=== PATIENT | male | born 1950 | race African-American/Black ===

== ENCOUNTER 2022-02-11 06:26 | Emergency (ER) | payer MEDICARE, MEDICAID ==
[~2022-02-11] VITALS: Ht 193 cm; Wt 84.1 kg
[2022-02-11 07:02] LABS: BASOPHILS % (AUTO) 0.2 % (0.0-2.0); EOSINOPHILS % (AUTO) 1.3 % (1.0-6.0); HEMOGLOBIN 9.4 g/dL (13.5-17.5); LYMPHOCYTES # (AUTO) 0.3 K/uL (1.0-4.8); LYMPHOCYTES % (AUTO) 3.2 % (22.0-44.0); MEAN CORPUSCULAR HEMOGLOBIN 27.2 pg (26.0-34.0); MEAN CORPUSCULAR HGB CONC 32.5 G/dL (31.0-37.0); MEAN CORPUSCULAR VOLUME 84 fL (80-100); MONOCYTES % (AUTO) 11.6 % (2.0-9.0); NEUTROPHILS # (AUTO) 7.5 K/uL (1.8-7.7); NEUTROPHILS % (AUTO) 83.7 % (40.0-70.0); PLATELET COUNT (AUTO) 407 K/uL (150-450); RED BLOOD CELL COUNT(AUTO) 3.47 MIL/uL (4.50-5.90); RED CELL DISTRIBUTION WIDTH 19.5 % (11.5-14.5)
[2022-02-11 07:13] LABS: INR 1.2 (0.9-1.1); PROTHROMBIN TIME 12.4 SEC (9.4-11.6)
[2022-02-11 07:18] LABS: ALBUMIN 2.3 g/dL (3.4-5.0); BILIRUBIN,TOTAL 0.6 mg/dL (0.1-1.0); CALCIUM, TOTAL 10.8 mg/dL (8.8-10.5); CREATININE 16.4 mg/dL (0.60-1.30); TOTAL PROTEIN, SERUM 7.8 g/dL (6.4-8.2)
[2022-02-11 07:26] LABS: POTASSIUM 6.7 mmol/L (3.5-5.1)
[2022-02-11] MEDS ORDERED: DEXTROSE 50%-WATER 25 GM/50 ML SYRINGE IVP ONE (07:30)
[2022-02-11] MEDS ORDERED: INSULIN REGULAR, HUMAN 100 UNITS/ML IVP ONE (07:30)
[2022-02-11] MEDS ORDERED: CALCIUM GLUCONATE 1,000 MG in DEXTROSE 5%-WATER 50 ML IV ONE (07:30)
[2022-02-11 09:32] LABS: CALCIUM, TOTAL 10.3 mg/dL (8.8-10.5); CREATININE 16.37 mg/dL (0.60-1.30)
[2022-02-11 09:33] LABS: POTASSIUM 7.1 mmol/L (3.5-5.1)
[2022-02-11 11:10] VITALS: BP 127/67
[2022-02-11 11:21] LABS: GLUCOMETER DEV NAME(LOC) ERT.5; GLUCOSE,POINT OF CARE 157 MG/DL (70-110)
== END 2022-02-11 21:17 | disposition home or self-care (01) ==
LOC: EMS 06:28
DX: E87.5 Hyperkalemia (principal); J81.1 Chronic pulmonary edema; D64.9 Anemia, unspecified; I25.10 Atherosclerotic heart disease of native coronary artery without angina pectoris; I12.0 Hypertensive chronic kidney disease with stage 5 chronic kidney disease or end stage renal disease; N18.6 End stage renal disease; Z99.2 Dependence on renal dialysis; Z91.15 Patient's noncompliance with renal dialysis; Z98.890 Other specified postprocedural states
CPT/HCPCS: 99285; 96365; 71045; 96375; 80053; 82962; 83880; 84484; 85025; 85610; 85730; 36415; 93005; 80048; J1815; J7060; J0610

== ENCOUNTER 2022-03-28 13:33 | Inpatient (IN) | payer MEDICARE, MEDICAID ==
[~2022-03-28] VITALS: Ht 180.3 cm; Wt 88.3 kg
[2022-03-28] MEDS ORDERED: ATROPINE SULFATE 0.1 MG/ML 10 ML SYRINGE IVP ONE ×2 (13:43→14:00)
[2022-03-28] MEDS ORDERED: CALCIUM GLUCONATE 0.465 MEQ/ML 10 ML VIAL ONE (13:43)
[2022-03-28] MEDS ORDERED: CALCIUM GLUCONATE 100 MG/ML 10 ML IVP ONE (14:00)
[2022-03-28] MEDS ORDERED: ATROPINE SULFATE 1 MG/ML VIAL IVP ONE (14:00)
[2022-03-28] MEDS ORDERED: DOPamine 400MG/D5W[STANDARD] 250 ML IV ONE (14:01)
[2022-03-28 14:39] LABS: BASOPHILS % (AUTO) 0.2 % (0.0-2.0); EOSINOPHILS % (AUTO) 1.3 % (1.0-6.0); HEMATOCRIT 24.5 % (41-53); HEMOGLOBIN 7.9 g/dL (13.5-17.5); LYMPHOCYTES # (AUTO) 0.7 K/uL (1.0-4.8); LYMPHOCYTES % (AUTO) 4.7 % (22.0-44.0); MEAN CORPUSCULAR HEMOGLOBIN 28.6 pg (26.0-34.0); MEAN CORPUSCULAR HGB CONC 32.4 G/dL (31.0-37.0); MEAN CORPUSCULAR VOLUME 89 fL (80-100); MONOCYTES # (AUTO) 0.9 K/uL (0.1-1.0); MONOCYTES % (AUTO) 5.7 % (2.0-9.0); NEUTROPHILS # (AUTO) 13.4 K/uL (1.8-7.7); PLATELET COUNT (AUTO) 390 K/uL (150-450); RED BLOOD CELL COUNT(AUTO) 2.77 MIL/uL (4.50-5.90); RED CELL DISTRIBUTION WIDTH 20.1 % (11.5-14.5)
[2022-03-28 14:44] LABS: CALCIUM, TOTAL 9.5 mg/dL (8.8-10.5); CREATININE 9.99 mg/dL (0.60-1.30); POTASSIUM 5.7 mmol/L (3.5-5.1)
[2022-03-28 14:50] LABS: ALBUMIN 2.1 g/dL (3.4-5.0); BILIRUBIN,TOTAL 0.5 mg/dL (0.1-1.0); TOTAL PROTEIN, SERUM 6.8 g/dL (6.4-8.2)
[2022-03-28 14:51] LABS: NEUTROPHILS % (AUTO) 88.1 % (40.0-70.0)
[2022-03-28 15:02] LABS: ABG BASE EXCESS 0.8 mmol/L (-2.0-3.0); ABG CARBOXYHEMOGLOBIN 0.1 % (0.0-1.5); ABG HCO3 25.2 mmol/L (22.0-26.0); ABG METHEMOGLOBIN 0.2 % (0.0-1.5); ABG OXYGEN CONTENT 12.5 mL/dL (15.0-23.0); ABG OXYGEN SATURATION 96.5 % (95.0-98.0); ABG OXYHEMOGLOBIN 96.2 % (94.0-100.0); ABG PCO2 38 mmHg (35-45); ABG PH 7.439 (7.35-7.450); ABG TOTAL HEMOGLOBIN 9.1 G/dL (12.0-18.0); PO2, ARTERIAL BG 87.9 mmHg (79.0-87.0); SOURCE, BLOOD GAS ARTERIAL; TEMPERATURE, FAHRENHEIT, BG 97.9 FAHREN (96.0-98.6)
[2022-03-28 15:06] LABS: SITE, BLOOD GAS RT RADIAL
[2022-03-28 15:07] LABS: ABG A-A DIFF O2 588.6 mmHg (10-20.0); O2 DEVICE,BLOOD GAS NON REBREATHER (ROOM AIR)
[2022-03-28] MEDS ORDERED: INSU100V42 SQ (16:23)
[2022-03-28] MEDS ORDERED: ACET-2247 PO (16:29)
[2022-03-28] MEDS ORDERED: ASPI-1 PO (16:29)
[2022-03-28] MEDS ORDERED: SEVE800T17 PO (16:29)
[2022-03-28] MEDS ORDERED: NIFE-141 PO (16:29)
[2022-03-28] MEDS ORDERED: ROPI0.2535 PO (16:29)
[2022-03-28] MEDS ORDERED: CINA30 PO (16:29)
[2022-03-28] MEDS ORDERED: CLOP75TA60 PO (16:29)
[2022-03-28] MEDS ORDERED: ATOR40TA28 PO (16:29)
[2022-03-28] MEDS ORDERED: FOLI0.8T53 PO (16:29)
[2022-03-28] MEDS ORDERED: ISOS30TA92 PO (16:29)
[2022-03-28] MEDS ORDERED: VANCOMYCIN 1GM/WATER(PEG/NADA) 200 ML IV ONE (16:30)
[2022-03-28] MEDS: DOPamine 400MG/D5W[STANDARD] 250 ML IV PRN ×2 (16:40→21:23)
[2022-03-28] MEDS: PIPERACILLIN/TAZO 3.375 GM/D5W 50 ML IV ONE ×2 (16:42→18:00)
[2022-03-28] MEDS ORDERED: SODIUM ZIRCONIUM CYCLOSILICATE 5 GM POWDER PACKET PO ONE (16:45)
[2022-03-28] MEDS ORDERED: NOREPINEPHRINE 8 MG/D5%-WATER 250 ML IV PRN (17:00)
[2022-03-28] MEDS ORDERED: ZOLPIDEM TARTRATE 5 MG TABLET PO PRN (17:00)
[2022-03-28] MEDS ORDERED: PIPERACILLIN SODIUM/TAZOBACTAM 0.75 GM in DEXTROSE 5%-WATER 50 ML IV PRN (17:15)
[2022-03-28 20:25] LABS: COVID AG,FIA SOURCE NASAL SWAB
[2022-03-28 20:50] VITALS: BP 118/59
[2022-03-28] MEDS: DOCUSATE SODIUM 100 MG CAPSULE PO SCH (21:22)
[2022-03-28] MEDS: ETHYL ALCOHOL 62% ANTISEPTIC NASAL SANITIZER 0.6 ML AMPUL NASAL SCH (21:22)
[2022-03-28 21:24] LABS: CALCIUM, TOTAL 9.1 mg/dL (8.8-10.5); CREATININE 10.03 mg/dL (0.60-1.30); POTASSIUM 5.5 mmol/L (3.5-5.1)
[2022-03-28] MEDS ORDERED: SODIUM CHLORIDE 0.9% 250 ML IV ONE (21:35)
[2022-03-28 23:31] LABS: GLUCOSE,POINT OF CARE 192 MG/DL (70-110)
[2022-03-29] VITALS (13 sets, daily range): BP systolic 93–133; BP diastolic 36–69
[2022-03-29] MEDS: HEPARIN SODIUM,PORCINE 5,000 UNITS/ML VIAL SQ SCH ×3 (00:46→18:00)
[2022-03-29] MEDS: PIPERACILLIN SODIUM/TAZOBACTAM 2.25 GM in DEXTROSE 5%-WATER 50 ML IV SCH ×3 (00:47→18:13)
[2022-03-29] MEDS ORDERED: DOPamine 400MG/D5W[STANDARD] 250 ML IV ONE (05:04)
[2022-03-29] MEDS ORDERED: NOREPINEPHRINE 8 MG/D5%-WATER 250 ML IV PRN (05:15)
[2022-03-29] MEDS: DOPamine 400MG/D5W[STANDARD] 250 ML IV PRN ×3 (05:19→16:46)
[2022-03-29 05:36] LABS: BASOPHILS % (AUTO) 0.2 % (0.0-2.0); EOSINOPHILS % (AUTO) 1.1 % (1.0-6.0); HEMATOCRIT 25.7 % (41-53); HEMOGLOBIN 8.5 g/dL (13.5-17.5); LYMPHOCYTES # (AUTO) 0.5 K/uL (1.0-4.8); MEAN CORPUSCULAR HEMOGLOBIN 29.1 pg (26.0-34.0); MEAN CORPUSCULAR VOLUME 88 fL (80-100); MONOCYTES # (AUTO) 0.6 K/uL (0.1-1.0); MONOCYTES % (AUTO) 4.9 % (2.0-9.0); NEUTROPHILS # (AUTO) 10.8 K/uL (1.8-7.7); PLATELET COUNT (AUTO) 392 K/uL (150-450); RED BLOOD CELL COUNT(AUTO) 2.92 MIL/uL (4.50-5.90); RED CELL DISTRIBUTION WIDTH 19.7 % (11.5-14.5)
[2022-03-29 05:49] LABS: CALCIUM, TOTAL 9.1 mg/dL (8.8-10.5); CREATININE 10.4 mg/dL (0.60-1.30); POTASSIUM 5.5 mmol/L (3.5-5.1)
[2022-03-29 06:08] LABS: NEUTROPHILS % (AUTO) 89.8 % (40.0-70.0)
[2022-03-29 06:31] LABS: GLUCOSE,POINT OF CARE 275 MG/DL (70-110)
[2022-03-29] MEDS: EPOETIN ALFA 10,000 UNITS/ML VIAL SQ SCH (08:57)
[2022-03-29] MEDS: ETHYL ALCOHOL 62% ANTISEPTIC NASAL SANITIZER 0.6 ML AMPUL NASAL SCH ×2 (08:57→20:26)
[2022-03-29] MEDS: CINACALCET HCL 30 MG TABLET PO SCH (08:57)
[2022-03-29] MEDS: SEVELAMER CARBONATE 800 MG TABLET PO SCH (08:57)
[2022-03-29] MEDS: DOCUSATE SODIUM 100 MG CAPSULE PO SCH ×2 (08:58→20:26)
[2022-03-29] MEDS: PANTOPRAZOLE SODIUM 40 MG DR TABLET PO SCH (08:58)
[2022-03-29] MEDS: ASPIRIN 325 MG TABLET PO SCH (08:58)
[2022-03-29] MEDS ORDERED: ATORVASTATIN CALCIUM 40 MG TABLET PO SCH (09:00)
[2022-03-29] MEDS ORDERED: CLOPIDOGREL BISULFATE 75 MG TABLET PO SCH (09:00)
[2022-03-29] MEDS ORDERED: ISOSORBIDE MONONITRATE 30 MG ER TABLET PO SCH (09:00)
[2022-03-29] MEDS ORDERED: SODIUM CHLORIDE 0.9% 2,000 ML ONE (09:36)
[2022-03-29] MEDS ORDERED: DEXTROSE 50%-WATER 25 GM/50 ML SYRINGE IVP PRN (10:30)
[2022-03-29] MEDS ORDERED: REMDESIVIR 200 MG in SODIUM CHLORIDE 0.9% 250 ML IV ONE (11:00)
[2022-03-29 11:41] LABS: INR 1.2 (0.9-1.1); PROTHROMBIN TIME 12.4 SEC (9.4-11.6)
[2022-03-29] MEDS: DEXAMETHASONE SOD PHOS 4 MG/ML VIAL IVP SCH (12:52)
[2022-03-29] MEDS: INSULIN LISPRO 100 UNITS/ML SQ PRN ×2 (13:15→18:14)
[2022-03-29] MEDS ORDERED: NALOXONE HCL 0.4 MG/ML VIAL ONE (14:21)
[2022-03-29] MEDS ORDERED: FLUMAZENIL 0.1 MG/ML 5 ML VIAL IVP ONE (14:21)
[2022-03-29] MEDS ORDERED: FentaNYL CITRATE PF 100 MCG/2 ML VIAL ONE (14:21)
[2022-03-29] MEDS ORDERED: MIDAZOLAM HCL 2 MG/2 ML VIAL ONE (14:21)
[2022-03-29 16:07] LABS: C-REACTIVE PROTEIN QUANT 19.46 mg/dL (0.00-0.30)
[2022-03-29] MEDS ORDERED: VANCOMYCIN 1GM/WATER(PEG/NADA) 200 ML IV PRN (16:15)
[2022-03-29] MEDS ORDERED: FentaNYL CITRATE PF 100 MCG/2 ML VIAL IVP ONE (16:30)
[2022-03-29 17:43] LABS: SPECIMENTYPE,BODY FLUID PLEURAL
[2022-03-29 19:33] LABS: APPEARANCE,UNSPUN,BODY FLUID TURBID (CLEAR)
[2022-03-29 19:38] LABS: TOTAL VOLUME,BODY FLUID 10 mL; WBC, BODY FLUID 356000 /cu. mm.
[2022-03-29 19:39] LABS: BASOPHILS,BODY FLUID 0 %; EOSINOPHILS,BF (ANAL) 0 %; LYMPHOCYTES,BODY FLUID 0 %; MONOCYTES,BODY FLUID 0 %; NEUTROPHILS,BODY FLUID 100 %
[2022-03-29 19:43] LABS: APPEARANCE,SPUN,BODY FLUID HAZY (CLEAR)
[2022-03-29 20:21] LABS: GLUCOSE,POINT OF CARE 159 MG/DL (70-110)
[2022-03-29 20:21] LABS: GLUCOSE,POINT OF CARE 196 MG/DL (70-110)
[2022-03-29 22:51] LABS: GLUCOSE,POINT OF CARE 141 MG/DL (70-110)
[2022-03-30] VITALS: BP 128/64
[2022-03-30] MEDS: HEPARIN SODIUM,PORCINE 5,000 UNITS/ML VIAL SQ SCH ×3 (00:13→16:05)
[2022-03-30] MEDS: PIPERACILLIN SODIUM/TAZOBACTAM 2.25 GM in DEXTROSE 5%-WATER 50 ML IV SCH ×3 (00:59→18:22)
[2022-03-30] MEDS: MAGNESIUM HYDROXIDE SUSPENSION 30 ML UDCUP PO PRN (03:41)
[2022-03-30 04:00] VITALS: BP 120/66
[2022-03-30 05:38] LABS: EOSINOPHILS % (AUTO) 0 % (1.0-6.0); HEMATOCRIT 26.2 % (41-53); HEMOGLOBIN 8.6 g/dL (13.5-17.5); LYMPHOCYTES # (AUTO) 0.4 K/uL (1.0-4.8); MEAN CORPUSCULAR HEMOGLOBIN 28.8 pg (26.0-34.0); MEAN CORPUSCULAR HGB CONC 32.9 G/dL (31.0-37.0); MEAN CORPUSCULAR VOLUME 88 fL (80-100); MONOCYTES # (AUTO) 0.3 K/uL (0.1-1.0); MONOCYTES % (AUTO) 2.3 % (2.0-9.0); PLATELET COUNT (AUTO) 403 K/uL (150-450); RED BLOOD CELL COUNT(AUTO) 2.98 MIL/uL (4.50-5.90); RED CELL DISTRIBUTION WIDTH 19.4 % (11.5-14.5)
[2022-03-30 05:52] LABS: ALBUMIN 1.9 g/dL (3.4-5.0); BILIRUBIN,DIRECT 0.2 mg/dL (0.00-0.20); BILIRUBIN,TOTAL 0.5 mg/dL (0.1-1.0); TOTAL PROTEIN, SERUM 6.5 g/dL (6.4-8.2)
[2022-03-30 05:53] LABS: ALBUMIN 1.9 g/dL (3.4-5.0); BILIRUBIN,TOTAL 0.4 mg/dL (0.1-1.0); C-REACTIVE PROTEIN QUANT 18.03 mg/dL (0.00-0.30); CALCIUM, TOTAL 8.6 mg/dL (8.8-10.5); CREATININE 8.19 mg/dL (0.60-1.30); TOTAL PROTEIN, SERUM 6.5 g/dL (6.4-8.2); VANCOMYCIN,RANDOM 7.8 mcg/mL (25.0-50.0)
[2022-03-30 06:09] LABS: NEUTROPHILS % (AUTO) 94.7 % (40.0-70.0)
[2022-03-30] MEDS: INSULIN LISPRO 100 UNITS/ML SQ PRN ×2 (06:53→21:18)
[2022-03-30 08:00] VITALS: BP 137/73
[2022-03-30] MEDS: DEXAMETHASONE SOD PHOS 4 MG/ML VIAL IVP SCH (08:35)
[2022-03-30] MEDS: DOCUSATE SODIUM 100 MG CAPSULE PO SCH ×2 (08:36→20:39)
[2022-03-30] MEDS: ETHYL ALCOHOL 62% ANTISEPTIC NASAL SANITIZER 0.6 ML AMPUL NASAL SCH ×2 (08:36→20:39)
[2022-03-30] MEDS: PANTOPRAZOLE SODIUM 40 MG DR TABLET PO SCH (08:36)
[2022-03-30] MEDS: ASPIRIN 325 MG TABLET PO SCH (08:36)
[2022-03-30] MEDS ORDERED: VANCOMYCIN HCL 1 GM/D5% WATER 200 ML IV ONE (09:00)
[2022-03-30] MEDS: ONDANSETRON HCL 4 MG/2 ML VIAL IVP PRN (09:59)
[2022-03-30 10:21] LABS: GLUCOSE,POINT OF CARE 152 MG/DL (70-110)
[2022-03-30 10:21] LABS: GLUCOSE,POINT OF CARE 128 MG/DL (70-110)
[2022-03-30] MEDS ORDERED: APIX5TAB PO (11:59)
[2022-03-30] MEDS ORDERED: METO25 PO (11:59)
[2022-03-30] MEDS ORDERED: AMIO200 PO (11:59)
[2022-03-30 12:00] VITALS: BP 124/59
[2022-03-30] MEDS ORDERED: VANCOMYCIN 1GM/WATER(PEG/NADA) 200 ML IV ONE (12:00)
[2022-03-30] MEDS: REMDESIVIR 100 MG in SODIUM CHLORIDE 0.9% 250 ML IV SCH (12:07)
[2022-03-30] MEDS: SEVELAMER CARBONATE 800 MG TABLET PO SCH (12:07)
[2022-03-30] MEDS: CINACALCET HCL 30 MG TABLET PO SCH (12:07)
[2022-03-30] MEDS: BISACODYL 10 MG RECTAL RECTAL SUPPOSITORY PR PRN (12:57)
[2022-03-30 16:00] VITALS: BP 91/22
[2022-03-30] MEDS: ACETAMINOPHEN 325 MG TABLET PO PRN (16:56)
[2022-03-30 19:31] LABS: GLUCOSE,POINT OF CARE 161 MG/DL (70-110)
[2022-03-30 20:00] VITALS: BP 128/63
[2022-03-31] VITALS (7 sets, daily range): BP systolic 116–164; BP diastolic 40–93
[2022-03-31] MEDS: HEPARIN SODIUM,PORCINE 5,000 UNITS/ML VIAL SQ SCH ×3 (00:03→16:48)
[2022-03-31] MEDS: PIPERACILLIN SODIUM/TAZOBACTAM 2.25 GM in DEXTROSE 5%-WATER 50 ML IV SCH ×3 (01:04→16:48)
[2022-03-31] MEDS: ACETAMINOPHEN 325 MG TABLET PO PRN ×3 (01:37→17:37)
[2022-03-31 05:31] LABS: GLUCOSE,POINT OF CARE 188 MG/DL (70-110)
[2022-03-31 05:39] LABS: EOSINOPHILS % (AUTO) 0 % (1.0-6.0); HEMATOCRIT 25.4 % (41-53); HEMOGLOBIN 8.6 g/dL (13.5-17.5); LYMPHOCYTES # (AUTO) 0.5 K/uL (1.0-4.8); LYMPHOCYTES % (AUTO) 5.3 % (22.0-44.0); MEAN CORPUSCULAR HEMOGLOBIN 29.4 pg (26.0-34.0); MEAN CORPUSCULAR HGB CONC 33.7 G/dL (31.0-37.0); MEAN CORPUSCULAR VOLUME 87 fL (80-100); MONOCYTES # (AUTO) 0.5 K/uL (0.1-1.0); MONOCYTES % (AUTO) 4.6 % (2.0-9.0); NEUTROPHILS # (AUTO) 8.9 K/uL (1.8-7.7); PLATELET COUNT (AUTO) 355 K/uL (150-450); RED BLOOD CELL COUNT(AUTO) 2.91 MIL/uL (4.50-5.90); RED CELL DISTRIBUTION WIDTH 19.6 % (11.5-14.5)
[2022-03-31 05:44] LABS: NEUTROPHILS % (AUTO) 90.1 % (40.0-70.0)
[2022-03-31 06:00] LABS: BILIRUBIN,TOTAL 0.4 mg/dL (0.1-1.0); C-REACTIVE PROTEIN QUANT 9.7 mg/dL (0.00-0.30); CALCIUM, TOTAL 8.3 mg/dL (8.8-10.5); CREATININE 9.18 mg/dL (0.60-1.30); POTASSIUM 5.3 mmol/L (3.5-5.1); TOTAL PROTEIN, SERUM 6.3 g/dL (6.4-8.2)
[2022-03-31] MEDS: CINACALCET HCL 30 MG TABLET PO SCH (08:36)
[2022-03-31] MEDS: SEVELAMER CARBONATE 800 MG TABLET PO SCH (08:36)
[2022-03-31] MEDS: PANTOPRAZOLE SODIUM 40 MG DR TABLET PO SCH (08:37)
[2022-03-31] MEDS: ASPIRIN 325 MG TABLET PO SCH (08:37)
[2022-03-31] MEDS: DOCUSATE SODIUM 100 MG CAPSULE PO SCH ×2 (08:37→20:52)
[2022-03-31] MEDS: ETHYL ALCOHOL 62% ANTISEPTIC NASAL SANITIZER 0.6 ML AMPUL NASAL SCH ×2 (08:37→20:52)
[2022-03-31] MEDS: DEXAMETHASONE SOD PHOS 4 MG/ML VIAL IVP SCH (08:41)
[2022-03-31] MEDS: -POST HEMODIALYSIS NOTE- MISC SCH (08:42)
[2022-03-31 10:07] LABS: GLUCOSE,POINT OF CARE 142 MG/DL (70-110)
[2022-03-31] MEDS: REMDESIVIR 100 MG in SODIUM CHLORIDE 0.9% 250 ML IV SCH (12:31)
[2022-03-31] MEDS: INSULIN LISPRO 100 UNITS/ML SQ PRN (12:38)
[2022-03-31 12:56] LABS: GLUCOSE,POINT OF CARE 162 MG/DL (70-110)
[2022-03-31 21:51] LABS: GLUCOSE,POINT OF CARE 122 MG/DL (70-110)
[2022-04-01] VITALS (14 sets, daily range): BP systolic 120–159; BP diastolic 61–83
[2022-04-01] MEDS ORDERED: SODIUM CHLORIDE 0.9% 250 ML IV ONE (00:03)
[2022-04-01] MEDS: HEPARIN SODIUM,PORCINE 5,000 UNITS/ML VIAL SQ SCH ×4 (00:24→23:58)
[2022-04-01] MEDS: PIPERACILLIN SODIUM/TAZOBACTAM 2.25 GM in DEXTROSE 5%-WATER 50 ML IV SCH ×3 (00:24→17:53)
[2022-04-01 07:03] LABS: BASOPHILS % (AUTO) 0.1 % (0.0-2.0); EOSINOPHILS % (AUTO) 0.6 % (1.0-6.0); HEMATOCRIT 27.8 % (41-53); HEMOGLOBIN 9.3 g/dL (13.5-17.5); LYMPHOCYTES # (AUTO) 0.7 K/uL (1.0-4.8); LYMPHOCYTES % (AUTO) 8.8 % (22.0-44.0); MEAN CORPUSCULAR HEMOGLOBIN 29.1 pg (26.0-34.0); MEAN CORPUSCULAR HGB CONC 33.5 G/dL (31.0-37.0); MEAN CORPUSCULAR VOLUME 87 fL (80-100); MONOCYTES # (AUTO) 0.5 K/uL (0.1-1.0); MONOCYTES % (AUTO) 6.1 % (2.0-9.0); NEUTROPHILS % (AUTO) 84.4 % (40.0-70.0); PLATELET COUNT (AUTO) 392 K/uL (150-450); RED BLOOD CELL COUNT(AUTO) 3.19 MIL/uL (4.50-5.90); RED CELL DISTRIBUTION WIDTH 20.4 % (11.5-14.5)
[2022-04-01 07:25] LABS: ALBUMIN 2.1 g/dL (3.4-5.0); BILIRUBIN,TOTAL 0.3 mg/dL (0.1-1.0); CALCIUM, TOTAL 8.6 mg/dL (8.8-10.5); CREATININE 10.13 mg/dL (0.60-1.30); POTASSIUM 5.5 mmol/L (3.5-5.1); TOTAL PROTEIN, SERUM 6.6 g/dL (6.4-8.2); VANCOMYCIN,RANDOM 16.7 mcg/mL (25.0-50.0)
[2022-04-01] MEDS ORDERED: SODIUM CHLORIDE 0.9% 2,000 ML ONE (08:04)
[2022-04-01] MEDS: -POST HEMODIALYSIS NOTE- MISC SCH (09:00)
[2022-04-01] MEDS: MAGNESIUM HYDROXIDE SUSPENSION 30 ML UDCUP PO PRN (09:58)
[2022-04-01] MEDS: EPOETIN ALFA 10,000 UNITS/ML VIAL SQ SCH (10:00)
[2022-04-01] MEDS: HYDROCODONE/ACETAMINOPHEN 5-325 MG TABLET PO PRN (10:01)
[2022-04-01] MEDS: DOCUSATE SODIUM 100 MG CAPSULE PO SCH ×2 (10:02→20:42)
[2022-04-01] MEDS: ATORVASTATIN CALCIUM 40 MG TABLET PO SCH (10:03)
[2022-04-01] MEDS: CINACALCET HCL 30 MG TABLET PO SCH (10:03)
[2022-04-01] MEDS: PANTOPRAZOLE SODIUM 40 MG DR TABLET PO SCH (10:04)
[2022-04-01] MEDS: ASPIRIN 325 MG TABLET PO SCH (10:04)
[2022-04-01] MEDS: SEVELAMER CARBONATE 800 MG TABLET PO SCH (10:04)
[2022-04-01] MEDS: DEXAMETHASONE SOD PHOS 4 MG/ML VIAL IVP SCH (10:05)
[2022-04-01] MEDS: ETHYL ALCOHOL 62% ANTISEPTIC NASAL SANITIZER 0.6 ML AMPUL NASAL SCH ×2 (10:05→20:42)
[2022-04-01 12:06] LABS: GLUCOMETER DEV NAME(LOC) 5N.1C; GLUCOSE,POINT OF CARE 134 MG/DL (70-110)
[2022-04-01] MEDS: REMDESIVIR 100 MG in SODIUM CHLORIDE 0.9% 250 ML IV SCH (13:02)
[2022-04-01 13:36] LABS: GLUCOMETER DEV NAME(LOC) 5S.2B; GLUCOSE,POINT OF CARE 81 MG/DL (70-110)
[2022-04-01] MEDS ORDERED: VANCOMYCIN 1GM/WATER(PEG/NADA) 200 ML IV ONE (17:00)
[2022-04-02] MEDS: PIPERACILLIN SODIUM/TAZOBACTAM 2.25 GM in DEXTROSE 5%-WATER 50 ML IV SCH ×3 (00:49→17:16)
[2022-04-02 05:49] VITALS: BP 143/66
[2022-04-02] MEDS: INSULIN LISPRO 100 UNITS/ML SQ PRN ×3 (06:12→20:19)
[2022-04-02 07:19] LABS: ALBUMIN 2.2 g/dL (3.4-5.0); BILIRUBIN,TOTAL 0.4 mg/dL (0.1-1.0); CALCIUM, TOTAL 8.3 mg/dL (8.8-10.5); CREATININE 7.21 mg/dL (0.60-1.30); POTASSIUM 5.2 mmol/L (3.5-5.1); TOTAL PROTEIN, SERUM 6.6 g/dL (6.4-8.2)
[2022-04-02 08:23] VITALS: BP 146/68
[2022-04-02] MEDS: -POST HEMODIALYSIS NOTE- MISC SCH (09:00)
[2022-04-02] MEDS ORDERED: SODIUM CHLORIDE 0.9% 250 ML IV ONE (09:40)
[2022-04-02] MEDS: PANTOPRAZOLE SODIUM 40 MG DR TABLET PO SCH (09:44)
[2022-04-02] MEDS: CINACALCET HCL 30 MG TABLET PO SCH (09:44)
[2022-04-02] MEDS: SEVELAMER CARBONATE 800 MG TABLET PO SCH (09:44)
[2022-04-02] MEDS: ASPIRIN 325 MG TABLET PO SCH (09:44)
[2022-04-02] MEDS: ATORVASTATIN CALCIUM 40 MG TABLET PO SCH (09:44)
[2022-04-02] MEDS: DOCUSATE SODIUM 100 MG CAPSULE PO SCH ×2 (09:45→20:12)
[2022-04-02] MEDS: DEXAMETHASONE SOD PHOS 4 MG/ML VIAL IVP SCH (09:46)
[2022-04-02] MEDS: HEPARIN SODIUM,PORCINE 5,000 UNITS/ML VIAL SQ SCH ×3 (09:46→23:41)
[2022-04-02] MEDS: ETHYL ALCOHOL 62% ANTISEPTIC NASAL SANITIZER 0.6 ML AMPUL NASAL SCH ×2 (09:54→20:12)
[2022-04-02 12:00] VITALS: BP 142/69
[2022-04-02] MEDS: REMDESIVIR 100 MG in SODIUM CHLORIDE 0.9% 250 ML IV SCH (14:04)
[2022-04-02 16:00] VITALS: BP 146/71
[2022-04-02 20:02] VITALS: BP 132/65
[2022-04-02] MEDS: ACETAMINOPHEN 325 MG TABLET PO PRN (20:13)
[2022-04-03] VITALS (14 sets, daily range): BP systolic 114–149; BP diastolic 57–90
[2022-04-03] MEDS: PIPERACILLIN SODIUM/TAZOBACTAM 2.25 GM in DEXTROSE 5%-WATER 50 ML IV SCH ×2 (01:45→09:33)
[2022-04-03 02:12] LABS: GLUCOMETER DEV NAME(LOC) 5S.1B; GLUCOSE,POINT OF CARE 136 MG/DL (70-110)
[2022-04-03 02:12] LABS: GLUCOMETER DEV NAME(LOC) 5S.1B; GLUCOSE,POINT OF CARE 204 MG/DL (70-110)
[2022-04-03 03:31] LABS: GLUCOMETER DEV NAME(LOC) 5N.1C; GLUCOSE,POINT OF CARE 112 MG/DL (70-110)
[2022-04-03 03:31] LABS: GLUCOMETER DEV NAME(LOC) 5N.1C; GLUCOSE,POINT OF CARE 157 MG/DL (70-110)
[2022-04-03 03:31] LABS: GLUCOMETER DEV NAME(LOC) 5N.1C; GLUCOSE,POINT OF CARE 95 MG/DL (70-110)
[2022-04-03 03:31] LABS: GLUCOMETER DEV NAME(LOC) 5N.1C; GLUCOSE,POINT OF CARE 157 MG/DL (70-110)
[2022-04-03] MEDS: INSULIN LISPRO 100 UNITS/ML SQ PRN ×3 (06:11→18:46)
[2022-04-03] MEDS: -POST HEMODIALYSIS NOTE- MISC SCH (09:00)
[2022-04-03 09:21] LABS: GLUCOMETER DEV NAME(LOC) 5S.2B; GLUCOSE,POINT OF CARE 186 MG/DL (70-110)
[2022-04-03] MEDS: CINACALCET HCL 30 MG TABLET PO SCH (09:33)
[2022-04-03] MEDS: ASPIRIN 325 MG TABLET PO SCH (09:33)
[2022-04-03] MEDS: SEVELAMER CARBONATE 800 MG TABLET PO SCH (09:34)
[2022-04-03] MEDS: ATORVASTATIN CALCIUM 40 MG TABLET PO SCH (09:34)
[2022-04-03] MEDS: DEXAMETHASONE SOD PHOS 4 MG/ML VIAL IVP SCH (09:34)
[2022-04-03] MEDS: HEPARIN SODIUM,PORCINE 5,000 UNITS/ML VIAL SQ SCH ×2 (09:34→17:17)
[2022-04-03] MEDS: PANTOPRAZOLE SODIUM 40 MG DR TABLET PO SCH (09:34)
[2022-04-03] MEDS: DOCUSATE SODIUM 100 MG CAPSULE PO SCH ×2 (09:35→20:01)
[2022-04-03] MEDS: EPOETIN ALFA 10,000 UNITS/ML VIAL SQ SCH (09:37)
[2022-04-03] MEDS: ETHYL ALCOHOL 62% ANTISEPTIC NASAL SANITIZER 0.6 ML AMPUL NASAL SCH ×2 (09:38→20:01)
[2022-04-03] MEDS ORDERED: ALTEPLASE 2 MG VIAL MISC ONE (12:15)
[2022-04-03 14:13] LABS: BASOPHILS % (AUTO) 0.1 % (0.0-2.0); EOSINOPHILS % (AUTO) 0.2 % (1.0-6.0); HEMATOCRIT 29.8 % (41-53); HEMOGLOBIN 9.7 g/dL (13.5-17.5); LYMPHOCYTES # (AUTO) 0.6 K/uL (1.0-4.8); LYMPHOCYTES % (AUTO) 4.6 % (22.0-44.0); MEAN CORPUSCULAR HEMOGLOBIN 28.9 pg (26.0-34.0); MEAN CORPUSCULAR HGB CONC 32.5 G/dL (31.0-37.0); MEAN CORPUSCULAR VOLUME 89 fL (80-100); MONOCYTES # (AUTO) 0.1 K/uL (0.1-1.0); PLATELET COUNT (AUTO) 390 K/uL (150-450); RED BLOOD CELL COUNT(AUTO) 3.35 MIL/uL (4.50-5.90); RED CELL DISTRIBUTION WIDTH 20.9 % (11.5-14.5)
[2022-04-03 14:22] LABS: NEUTROPHILS % (AUTO) 94.1 % (40.0-70.0)
[2022-04-03 14:30] LABS: CALCIUM, TOTAL 7.9 mg/dL (8.8-10.5); CREATININE 7.05 mg/dL (0.60-1.30); MAGNESIUM 2.6 mg/dL (1.80-2.40); PHOSPHORUS 3.1 mg/dL (2.5-4.9); POTASSIUM 4.8 mmol/L (3.5-5.1)
[2022-04-03] MEDS: ACETAMINOPHEN 325 MG TABLET PO PRN (17:16)
[2022-04-03 17:52] LABS: C-REACTIVE PROTEIN QUANT 3.35 mg/dL (0.00-0.30); VANCOMYCIN,RANDOM 12.8 mcg/mL (25.0-50.0)
[2022-04-03] MEDS: AMPICILLIN SODIUM/SULBACTAM NA 3 GM in SODIUM CHLORIDE 0.9% 100 ML IV SCH (18:32)
[2022-04-03] MEDS ORDERED: SODIUM CHLORIDE 0.9% 500 ML IV ONE (18:35)
[2022-04-03 19:11] LABS: GLUCOMETER DEV NAME(LOC) 5S.2B; GLUCOSE,POINT OF CARE 144 MG/DL (70-110)
[2022-04-04 00:16] VITALS: BP 104/59
[2022-04-04 01:46] LABS: GLUCOMETER DEV NAME(LOC) 5S.1B; GLUCOSE,POINT OF CARE 161 MG/DL (70-110)
[2022-04-04 06:32] VITALS: BP 103/49
[2022-04-04 08:17] VITALS: BP 110/55
[2022-04-04 08:41] LABS: CALCIUM, TOTAL 8.1 mg/dL (8.8-10.5); CREATININE 6.8 mg/dL (0.60-1.30); MAGNESIUM 2.6 mg/dL (1.80-2.40); PHOSPHORUS 3.1 mg/dL (2.5-4.9); POTASSIUM 5.1 mmol/L (3.5-5.1)
[2022-04-04 09:02] LABS: EOSINOPHILS % (AUTO) 0.9 % (1.0-6.0); HEMATOCRIT 30.3 % (41-53); HEMOGLOBIN 9.9 g/dL (13.5-17.5); LYMPHOCYTES # (AUTO) 1.1 K/uL (1.0-4.8); LYMPHOCYTES % (AUTO) 8.2 % (22.0-44.0); MEAN CORPUSCULAR HEMOGLOBIN 29.2 pg (26.0-34.0); MEAN CORPUSCULAR HGB CONC 32.6 G/dL (31.0-37.0); MEAN CORPUSCULAR VOLUME 90 fL (80-100); MONOCYTES # (AUTO) 0.5 K/uL (0.1-1.0); MONOCYTES % (AUTO) 3.7 % (2.0-9.0); NEUTROPHILS # (AUTO) 11.9 K/uL (1.8-7.7); PLATELET COUNT (AUTO) 406 K/uL (150-450); RED BLOOD CELL COUNT(AUTO) 3.38 MIL/uL (4.50-5.90); RED CELL DISTRIBUTION WIDTH 20.6 % (11.5-14.5)
[2022-04-04] MEDS: MAGNESIUM HYDROXIDE SUSPENSION 30 ML UDCUP PO PRN (09:44)
[2022-04-04] MEDS: SEVELAMER CARBONATE 800 MG TABLET PO SCH (09:45)
[2022-04-04] MEDS: ATORVASTATIN CALCIUM 40 MG TABLET PO SCH (09:45)
[2022-04-04] MEDS: CINACALCET HCL 30 MG TABLET PO SCH (09:45)
[2022-04-04] MEDS: DOCUSATE SODIUM 100 MG CAPSULE PO SCH ×2 (09:45→20:07)
[2022-04-04] MEDS: ASPIRIN 325 MG TABLET PO SCH (09:45)
[2022-04-04] MEDS: HEPARIN SODIUM,PORCINE 5,000 UNITS/ML VIAL SQ SCH ×2 (09:46)
[2022-04-04] MEDS: DEXAMETHASONE SOD PHOS 4 MG/ML VIAL IVP SCH (09:50)
[2022-04-04] MEDS: ETHYL ALCOHOL 62% ANTISEPTIC NASAL SANITIZER 0.6 ML AMPUL NASAL SCH ×2 (09:52→20:08)
[2022-04-04] MEDS: METOPROLOL SUCCINATE 25 MG ER TABLET PO SCH (09:52)
[2022-04-04] MEDS: PANTOPRAZOLE SODIUM 40 MG DR TABLET PO SCH ×2 (09:52→20:08)
[2022-04-04 09:54] LABS: NEUTROPHILS % (AUTO) 87.2 % (40.0-70.0)
[2022-04-04] MEDS: ACETAMINOPHEN 325 MG TABLET PO PRN (10:07)
[2022-04-04 11:10] VITALS: BP 101/48
[2022-04-04 11:41] LABS: GLUCOMETER DEV NAME(LOC) 5S.2B; GLUCOSE,POINT OF CARE 124 MG/DL (70-110)
[2022-04-04 15:41] VITALS: BP 105/59
[2022-04-04] MEDS: AMPICILLIN SODIUM/SULBACTAM NA 3 GM in SODIUM CHLORIDE 0.9% 100 ML IV SCH (17:40)
[2022-04-04] MEDS: MORPHINE SULFATE 2 MG/ML SYRINGE IVP PRN ×2 (17:40→21:46)
[2022-04-04] MEDS: INSULIN LISPRO 100 UNITS/ML SQ PRN ×2 (17:50→20:48)
[2022-04-04 20:00] VITALS: BP 137/65
[2022-04-04 20:26] LABS: GLUCOMETER DEV NAME(LOC) 5S.2B; GLUCOSE,POINT OF CARE 168 MG/DL (70-110)
[2022-04-04 20:35] LABS: BASOPHILS % (AUTO) 0.1 % (0.0-2.0); EOSINOPHILS % (AUTO) 0.1 % (1.0-6.0); HEMATOCRIT 29.1 % (41-53); HEMOGLOBIN 9.5 g/dL (13.5-17.5); LYMPHOCYTES # (AUTO) 0.7 K/uL (1.0-4.8); LYMPHOCYTES % (AUTO) 5.3 % (22.0-44.0); MEAN CORPUSCULAR HEMOGLOBIN 28.9 pg (26.0-34.0); MEAN CORPUSCULAR HGB CONC 32.7 G/dL (31.0-37.0); MEAN CORPUSCULAR VOLUME 89 fL (80-100); MONOCYTES # (AUTO) 0.3 K/uL (0.1-1.0); MONOCYTES % (AUTO) 2.3 % (2.0-9.0); NEUTROPHILS # (AUTO) 12.3 K/uL (1.8-7.7); PLATELET COUNT (AUTO) 385 K/uL (150-450); RED BLOOD CELL COUNT(AUTO) 3.29 MIL/uL (4.50-5.90); RED CELL DISTRIBUTION WIDTH 20.8 % (11.5-14.5)
[2022-04-04 20:48] LABS: NEUTROPHILS % (AUTO) 92.2 % (40.0-70.0)
[2022-04-05] VITALS (14 sets, daily range): BP systolic 109–150; BP diastolic 40–85
[2022-04-05] MEDS: METOPROLOL SUCCINATE 25 MG ER TABLET PO SCH (09:00)
[2022-04-05] MEDS: DOCUSATE SODIUM 100 MG CAPSULE PO SCH ×2 (09:00→20:01)
[2022-04-05] MEDS: CINACALCET HCL 30 MG TABLET PO SCH (09:13)
[2022-04-05] MEDS: ETHYL ALCOHOL 62% ANTISEPTIC NASAL SANITIZER 0.6 ML AMPUL NASAL SCH ×2 (09:14→20:01)
[2022-04-05] MEDS: SEVELAMER CARBONATE 800 MG TABLET PO SCH (09:14)
[2022-04-05] MEDS: ASPIRIN 325 MG TABLET PO SCH (09:14)
[2022-04-05] MEDS: ATORVASTATIN CALCIUM 40 MG TABLET PO SCH (09:15)
[2022-04-05] MEDS: PANTOPRAZOLE SODIUM 40 MG DR TABLET PO SCH ×2 (09:15→20:01)
[2022-04-05] MEDS: EPOETIN ALFA 10,000 UNITS/ML VIAL SQ SCH (09:19)
[2022-04-05] MEDS: DEXAMETHASONE SOD PHOS 4 MG/ML VIAL IVP SCH (09:20)
[2022-04-05] MEDS: MORPHINE SULFATE 2 MG/ML SYRINGE IVP PRN (10:56)
[2022-04-05] MEDS: AMPICILLIN SODIUM/SULBACTAM NA 3 GM in SODIUM CHLORIDE 0.9% 100 ML IV SCH (17:54)
[2022-04-05 20:11] LABS: GLUCOMETER DEV NAME(LOC) 5S.1B; GLUCOSE,POINT OF CARE 118 MG/DL (70-110)
[2022-04-05 20:16] LABS: GLUCOMETER DEV NAME(LOC) 5S.2B; GLUCOSE,POINT OF CARE 97 MG/DL (70-110)
[2022-04-05 20:17] LABS: GLUCOMETER DEV NAME(LOC) 5S.2B; GLUCOSE,POINT OF CARE 42 MG/DL (70-110)
[2022-04-05 20:17] LABS: GLUCOMETER DEV NAME(LOC) 5S.2B; GLUCOSE,POINT OF CARE 71 MG/DL (70-110)
[2022-04-05] MEDS: INSULIN LISPRO 100 UNITS/ML SQ PRN (20:17)
[2022-04-06] VITALS: BP 106/47
[2022-04-06 04:00] VITALS: BP 110/62
[2022-04-06 07:47] VITALS: BP 135/59
[2022-04-06] MEDS: DOCUSATE SODIUM 100 MG CAPSULE PO SCH ×2 (09:00→20:38)
[2022-04-06 09:01] LABS: GLUCOMETER DEV NAME(LOC) 5S.1B; GLUCOSE,POINT OF CARE 153 MG/DL (70-110)
[2022-04-06] MEDS: ETHYL ALCOHOL 62% ANTISEPTIC NASAL SANITIZER 0.6 ML AMPUL NASAL SCH ×2 (09:42→20:38)
[2022-04-06] MEDS: SEVELAMER CARBONATE 800 MG TABLET PO SCH (09:43)
[2022-04-06] MEDS: CINACALCET HCL 30 MG TABLET PO SCH (09:43)
[2022-04-06] MEDS: METOPROLOL SUCCINATE 25 MG ER TABLET PO SCH (09:43)
[2022-04-06] MEDS: PANTOPRAZOLE SODIUM 40 MG DR TABLET PO SCH ×2 (09:43→20:38)
[2022-04-06] MEDS: ATORVASTATIN CALCIUM 40 MG TABLET PO SCH (09:43)
[2022-04-06] MEDS: DEXAMETHASONE SOD PHOS 4 MG/ML VIAL IVP SCH (09:44)
[2022-04-06] MEDS: ASPIRIN 325 MG TABLET PO SCH (09:44)
[2022-04-06] MEDS: SIMETHICONE 80 MG CHEWABLE TABLET CHEW PRN (10:03)
[2022-04-06 10:22] LABS: COVID AG,FIA SOURCE NASAL SWAB
[2022-04-06 11:45] VITALS: BP 133/57
[2022-04-06 14:37] LABS: EOSINOPHILS % (AUTO) 0.2 % (1.0-6.0); HEMATOCRIT 27.9 % (41-53); HEMOGLOBIN 9.2 g/dL (13.5-17.5); LYMPHOCYTES # (AUTO) 0.5 K/uL (1.0-4.8); LYMPHOCYTES % (AUTO) 3.8 % (22.0-44.0); MEAN CORPUSCULAR HEMOGLOBIN 29.7 pg (26.0-34.0); MEAN CORPUSCULAR HGB CONC 32.9 G/dL (31.0-37.0); MEAN CORPUSCULAR VOLUME 90 fL (80-100); MONOCYTES # (AUTO) 0.1 K/uL (0.1-1.0); MONOCYTES % (AUTO) 1.1 % (2.0-9.0); NEUTROPHILS # (AUTO) 11.7 K/uL (1.8-7.7); PLATELET COUNT (AUTO) 343 K/uL (150-450); RED BLOOD CELL COUNT(AUTO) 3.09 MIL/uL (4.50-5.90); RED CELL DISTRIBUTION WIDTH 22.5 % (11.5-14.5)
[2022-04-06 14:40] LABS: NEUTROPHILS % (AUTO) 94.9 % (40.0-70.0)
[2022-04-06 14:46] LABS: CALCIUM, TOTAL 7.8 mg/dL (8.8-10.5); CREATININE 6.06 mg/dL (0.60-1.30); POTASSIUM 4.9 mmol/L (3.5-5.1)
[2022-04-06 14:48] LABS: MAGNESIUM 2.8 mg/dL (1.80-2.40); PHOSPHORUS 3.4 mg/dL (2.5-4.9)
[2022-04-06 16:04] VITALS: BP 116/56
[2022-04-06] MEDS: AMPICILLIN SODIUM/SULBACTAM NA 3 GM in SODIUM CHLORIDE 0.9% 100 ML IV SCH (17:50)
[2022-04-06] MEDS: INSULIN LISPRO 100 UNITS/ML SQ PRN ×2 (18:02→20:45)
[2022-04-06 20:17] VITALS: BP 127/51
[2022-04-06 20:25] LABS: GLUCOMETER DEV NAME(LOC) 5N.1C; GLUCOSE,POINT OF CARE 118 MG/DL (70-110)
[2022-04-06] MEDS: MORPHINE SULFATE 2 MG/ML SYRINGE IVP PRN (22:50)
[2022-04-07 00:17] VITALS: BP 133/50
[2022-04-07 05:16] VITALS: BP 141/53
[2022-04-07 06:27] LABS: GLUCOMETER DEV NAME(LOC) 5S.2B; GLUCOSE,POINT OF CARE 193 MG/DL (70-110)
[2022-04-07 06:27] LABS: GLUCOMETER DEV NAME(LOC) 5S.2B; GLUCOSE,POINT OF CARE 229 MG/DL (70-110)
[2022-04-07 06:27] LABS: GLUCOMETER DEV NAME(LOC) 5S.2B; GLUCOSE,POINT OF CARE 134 MG/DL (70-110)
[2022-04-07] MEDS: MAGNESIUM HYDROXIDE SUSPENSION 30 ML UDCUP PO PRN (06:33)
[2022-04-07] MEDS: ACETAMINOPHEN 325 MG TABLET PO PRN (06:34)
[2022-04-07 08:03] VITALS: BP 127/54
[2022-04-07] MEDS: CINACALCET HCL 30 MG TABLET PO SCH (08:57)
[2022-04-07] MEDS: ASPIRIN 325 MG TABLET PO SCH (08:59)
[2022-04-07] MEDS: ATORVASTATIN CALCIUM 40 MG TABLET PO SCH (09:00)
[2022-04-07] MEDS: SEVELAMER CARBONATE 800 MG TABLET PO SCH (09:00)
[2022-04-07] MEDS: METOPROLOL SUCCINATE 25 MG ER TABLET PO SCH (09:01)
[2022-04-07] MEDS: PANTOPRAZOLE SODIUM 40 MG DR TABLET PO SCH ×2 (09:01→20:38)
[2022-04-07] MEDS: DEXAMETHASONE SOD PHOS 4 MG/ML VIAL IVP SCH (09:02)
[2022-04-07] MEDS: DOCUSATE SODIUM 100 MG CAPSULE PO SCH ×2 (09:03→20:38)
[2022-04-07] MEDS: ETHYL ALCOHOL 62% ANTISEPTIC NASAL SANITIZER 0.6 ML AMPUL NASAL SCH ×2 (09:03→20:45)
[2022-04-07] MEDS: LOSARTAN POTASSIUM 25 MG TABLET PO SCH (09:10)
[2022-04-07] MEDS: INSULIN LISPRO 100 UNITS/ML SQ PRN ×3 (12:04→20:44)
[2022-04-07 12:27] VITALS: BP 115/54
[2022-04-07 14:36] LABS: GLUCOMETER DEV NAME(LOC) 5N.1C; GLUCOSE,POINT OF CARE 150 MG/DL (70-110)
[2022-04-07] MEDS: AMPICILLIN SODIUM/SULBACTAM NA 3 GM in SODIUM CHLORIDE 0.9% 100 ML IV SCH (17:19)
[2022-04-07] MEDS: SIMETHICONE 80 MG CHEWABLE TABLET CHEW PRN ×2 (18:22→20:38)
[2022-04-07 20:21] LABS: GLUCOMETER DEV NAME(LOC) 5S.2B; GLUCOSE,POINT OF CARE 196 MG/DL (70-110)
[2022-04-07] MEDS: MORPHINE SULFATE 2 MG/ML SYRINGE IVP PRN (20:39)
[2022-04-07 20:41] VITALS: BP 120/49
[2022-04-08] VITALS (15 sets, daily range): BP systolic 99–145; BP diastolic 50–88
[2022-04-08 05:36] LABS: GLUCOMETER DEV NAME(LOC) 5N.1C; GLUCOSE,POINT OF CARE 235 MG/DL (70-110)
[2022-04-08 06:29] LABS: CALCIUM, TOTAL 7.7 mg/dL (8.8-10.5); CREATININE 8.38 mg/dL (0.60-1.30); POTASSIUM 5.5 mmol/L (3.5-5.1)
[2022-04-08 06:36] LABS: GLUCOMETER DEV NAME(LOC) 5N.1C; GLUCOSE,POINT OF CARE 112 MG/DL (70-110)
[2022-04-08] MEDS ORDERED: SODIUM CHLORIDE 0.9% 1,000 ML ONE (10:15)
[2022-04-08] MEDS: SEVELAMER CARBONATE 800 MG TABLET PO SCH (10:43)
[2022-04-08] MEDS: MAGNESIUM HYDROXIDE SUSPENSION 30 ML UDCUP PO PRN (10:44)
[2022-04-08] MEDS: ATORVASTATIN CALCIUM 40 MG TABLET PO SCH (10:47)
[2022-04-08] MEDS: LOSARTAN POTASSIUM 25 MG TABLET PO SCH (10:47)
[2022-04-08] MEDS: DOCUSATE SODIUM 100 MG CAPSULE PO SCH ×2 (10:47→20:08)
[2022-04-08] MEDS: METOPROLOL SUCCINATE 25 MG ER TABLET PO SCH (10:48)
[2022-04-08] MEDS: CINACALCET HCL 30 MG TABLET PO SCH (10:48)
[2022-04-08] MEDS: PANTOPRAZOLE SODIUM 40 MG DR TABLET PO SCH ×2 (10:48→20:08)
[2022-04-08] MEDS: ETHYL ALCOHOL 62% ANTISEPTIC NASAL SANITIZER 0.6 ML AMPUL NASAL SCH ×2 (10:48→20:08)
[2022-04-08] MEDS: ASPIRIN 325 MG TABLET PO SCH (10:49)
[2022-04-08] MEDS: EPOETIN ALFA 10,000 UNITS/ML VIAL SQ SCH (10:53)
[2022-04-08] MEDS: INSULIN LISPRO 100 UNITS/ML SQ PRN (12:51)
[2022-04-08] MEDS: AMPICILLIN SODIUM/SULBACTAM NA 3 GM in SODIUM CHLORIDE 0.9% 100 ML IV SCH (18:20)
[2022-04-09] VITALS (7 sets, daily range): BP systolic 108–158; BP diastolic 51–61
[2022-04-09] MEDS: MAGNESIUM HYDROXIDE SUSPENSION 30 ML UDCUP PO PRN ×2 (00:51→16:35)
[2022-04-09] MEDS: SIMETHICONE 80 MG CHEWABLE TABLET CHEW PRN ×2 (00:51→23:36)
[2022-04-09] MEDS: MORPHINE SULFATE 2 MG/ML SYRINGE IVP PRN ×2 (00:52→08:30)
[2022-04-09 02:27] LABS: GLUCOMETER DEV NAME(LOC) 5N.1C; GLUCOSE,POINT OF CARE 116 MG/DL (70-110)
[2022-04-09 02:27] LABS: GLUCOMETER DEV NAME(LOC) 5N.1C; GLUCOSE,POINT OF CARE 162 MG/DL (70-110)
[2022-04-09 02:27] LABS: GLUCOMETER DEV NAME(LOC) 5N.1C; GLUCOSE,POINT OF CARE 108 MG/DL (70-110)
[2022-04-09] MEDS: ACETAMINOPHEN 325 MG TABLET PO PRN (03:39)
[2022-04-09] MEDS: BISACODYL 10 MG RECTAL RECTAL SUPPOSITORY PR PRN (06:10)
[2022-04-09] MEDS: DOCUSATE SODIUM 100 MG CAPSULE PO SCH ×2 (08:26→23:36)
[2022-04-09] MEDS: ETHYL ALCOHOL 62% ANTISEPTIC NASAL SANITIZER 0.6 ML AMPUL NASAL SCH ×2 (08:26→23:35)
[2022-04-09] MEDS: SEVELAMER CARBONATE 800 MG TABLET PO SCH (08:26)
[2022-04-09] MEDS: ASPIRIN 325 MG TABLET PO SCH (08:26)
[2022-04-09] MEDS: PANTOPRAZOLE SODIUM 40 MG DR TABLET PO SCH ×2 (08:27→23:36)
[2022-04-09] MEDS: ATORVASTATIN CALCIUM 40 MG TABLET PO SCH (08:27)
[2022-04-09] MEDS: LOSARTAN POTASSIUM 25 MG TABLET PO SCH ×2 (08:27→12:18)
[2022-04-09] MEDS: METOPROLOL SUCCINATE 25 MG ER TABLET PO SCH ×2 (08:27→12:18)
[2022-04-09] MEDS: CINACALCET HCL 30 MG TABLET PO SCH (08:29)
[2022-04-09] MEDS: HYDROCODONE/ACETAMINOPHEN 5-325 MG TABLET PO PRN ×3 (08:56→18:51)
[2022-04-09] MEDS: INSULIN LISPRO 100 UNITS/ML SQ PRN ×2 (12:19→17:22)
[2022-04-09] MEDS: AMPICILLIN SODIUM/SULBACTAM NA 3 GM in SODIUM CHLORIDE 0.9% 100 ML IV SCH (16:35)
[2022-04-09] MEDS ORDERED: SODIUM CHLORIDE 0.9% 500 ML IV ONE (16:38)
[2022-04-10 00:56] LABS: GLUCOMETER DEV NAME(LOC) 5S.2B; GLUCOSE,POINT OF CARE 165 MG/DL (70-110)
[2022-04-10 00:56] LABS: GLUCOMETER DEV NAME(LOC) 5S.2B; GLUCOSE,POINT OF CARE 184 MG/DL (70-110)
[2022-04-10] MEDS: MORPHINE SULFATE 2 MG/ML SYRINGE IVP PRN ×2 (01:02→12:05)
[2022-04-10 05:02] VITALS: BP 145/79
[2022-04-10] MEDS: CALCIUM CARBONATE 500 MG CHEWABLE TABLET CHEW PRN (06:25)
[2022-04-10 07:33] LABS: CALCIUM, TOTAL 7.4 mg/dL (8.8-10.5); CREATININE 7.61 mg/dL (0.60-1.30); POTASSIUM 5.2 mmol/L (3.5-5.1)
[2022-04-10 08:39] VITALS: BP 136/68
[2022-04-10] MEDS: CINACALCET HCL 30 MG TABLET PO SCH (08:40)
[2022-04-10] MEDS: SEVELAMER CARBONATE 800 MG TABLET PO SCH (08:40)
[2022-04-10] MEDS: ATORVASTATIN CALCIUM 40 MG TABLET PO SCH (08:41)
[2022-04-10] MEDS: DOCUSATE SODIUM 100 MG CAPSULE PO SCH ×2 (08:41→20:46)
[2022-04-10] MEDS: LOSARTAN POTASSIUM 25 MG TABLET PO SCH (08:41)
[2022-04-10] MEDS: ETHYL ALCOHOL 62% ANTISEPTIC NASAL SANITIZER 0.6 ML AMPUL NASAL SCH ×2 (08:41→20:50)
[2022-04-10] MEDS: ASPIRIN 325 MG TABLET PO SCH (08:41)
[2022-04-10] MEDS: PANTOPRAZOLE SODIUM 40 MG DR TABLET PO SCH ×2 (08:42→20:46)
[2022-04-10] MEDS: HYDROCODONE/ACETAMINOPHEN 5-325 MG TABLET PO PRN ×3 (08:42→17:40)
[2022-04-10] MEDS: METOPROLOL SUCCINATE 25 MG ER TABLET PO SCH (08:42)
[2022-04-10] MEDS: EPOETIN ALFA 10,000 UNITS/ML VIAL SQ SCH (08:42)
[2022-04-10] MEDS ORDERED: BISACODYL 10 MG RECTAL RECTAL SUPPOSITORY PR PRN (10:00)
[2022-04-10] MEDS ORDERED: LACTULOSE 20 GM/30 ML SOLUTION UDCUP PO PRN (10:00)
[2022-04-10] MEDS ORDERED: DOCUSATE SODIUM 100 MG CAPSULE PO SCH (10:00)
[2022-04-10] MEDS: AMPICILLIN SODIUM/SULBACTAM NA 3 GM in SODIUM CHLORIDE 0.9% 100 ML IV SCH (17:39)
[2022-04-10 20:37] VITALS: BP 127/59
[2022-04-10] MEDS: INSULIN LISPRO 100 UNITS/ML SQ PRN (20:45)
[2022-04-10 22:46] LABS: GLUCOMETER DEV NAME(LOC) 5S.1B; GLUCOSE,POINT OF CARE 171 MG/DL (70-110)
[2022-04-11] VITALS (8 sets, daily range): BP systolic 110–142; BP diastolic 49–76
[2022-04-11] MEDS: ATORVASTATIN CALCIUM 40 MG TABLET PO SCH (09:45)
[2022-04-11] MEDS: CINACALCET HCL 30 MG TABLET PO SCH (09:45)
[2022-04-11] MEDS: ETHYL ALCOHOL 62% ANTISEPTIC NASAL SANITIZER 0.6 ML AMPUL NASAL SCH (09:46)
[2022-04-11] MEDS: METOPROLOL SUCCINATE 25 MG ER TABLET PO SCH (09:46)
[2022-04-11] MEDS: SEVELAMER CARBONATE 800 MG TABLET PO SCH (09:46)
[2022-04-11] MEDS: PANTOPRAZOLE SODIUM 40 MG DR TABLET PO SCH ×2 (09:46→21:08)
[2022-04-11] MEDS: LOSARTAN POTASSIUM 25 MG TABLET PO SCH (09:47)
[2022-04-11] MEDS: ASPIRIN 325 MG TABLET PO SCH (09:47)
[2022-04-11] MEDS: DOCUSATE SODIUM 100 MG CAPSULE PO SCH ×2 (09:52→20:35)
[2022-04-11] MEDS: CALCIUM CARBONATE 500 MG CHEWABLE TABLET CHEW PRN (09:55)
[2022-04-11 11:31] LABS: GLUCOMETER DEV NAME(LOC) 5N.1C; GLUCOSE,POINT OF CARE 114 MG/DL (70-110)
[2022-04-11] MEDS: AMPICILLIN SODIUM/SULBACTAM NA 3 GM in SODIUM CHLORIDE 0.9% 100 ML IV SCH (17:39)
[2022-04-11] MEDS: HEPARIN SODIUM,PORCINE 5,000 UNITS/ML VIAL SQ SCH (21:08)
[2022-04-12] VITALS (10 sets, daily range): BP systolic 90–141; BP diastolic 50–100
[2022-04-12] MEDS: HYDROCODONE/ACETAMINOPHEN 5-325 MG TABLET PO PRN ×2 (00:29→08:54)
[2022-04-12 07:06] LABS: GLUCOMETER DEV NAME(LOC) 5N.1C; GLUCOSE,POINT OF CARE 118 MG/DL (70-110)
[2022-04-12 07:44] LABS: BASOPHILS % (AUTO) 0.5 % (0.0-2.0); EOSINOPHILS % (AUTO) 2.9 % (1.0-6.0); HEMATOCRIT 26.4 % (41-53); HEMOGLOBIN 9.1 g/dL (13.5-17.5); LYMPHOCYTES # (AUTO) 0.7 K/uL (1.0-4.8); LYMPHOCYTES % (AUTO) 8.3 % (22.0-44.0); MEAN CORPUSCULAR HEMOGLOBIN 31.8 pg (26.0-34.0); MEAN CORPUSCULAR HGB CONC 34.6 G/dL (31.0-37.0); MEAN CORPUSCULAR VOLUME 92 fL (80-100); MONOCYTES # (AUTO) 0.7 K/uL (0.1-1.0); MONOCYTES % (AUTO) 7.5 % (2.0-9.0); NEUTROPHILS # (AUTO) 7.2 K/uL (1.8-7.7); NEUTROPHILS % (AUTO) 80.8 % (40.0-70.0); PLATELET COUNT (AUTO) 194 K/uL (150-450); RED BLOOD CELL COUNT(AUTO) 2.87 MIL/uL (4.50-5.90); RED CELL DISTRIBUTION WIDTH 23.7 % (11.5-14.5)
[2022-04-12] MEDS: CINACALCET HCL 30 MG TABLET PO SCH (08:53)
[2022-04-12] MEDS: DOCUSATE SODIUM 100 MG CAPSULE PO SCH ×2 (08:54→20:44)
[2022-04-12] MEDS: SEVELAMER CARBONATE 800 MG TABLET PO SCH (08:54)
[2022-04-12] MEDS: PANTOPRAZOLE SODIUM 40 MG DR TABLET PO SCH ×2 (08:54→20:41)
[2022-04-12] MEDS: ASPIRIN 325 MG TABLET PO SCH (08:54)
[2022-04-12] MEDS: ATORVASTATIN CALCIUM 40 MG TABLET PO SCH (08:54)
[2022-04-12] MEDS: HEPARIN SODIUM,PORCINE 5,000 UNITS/ML VIAL SQ SCH ×2 (08:55→20:41)
[2022-04-12] MEDS: EPOETIN ALFA 10,000 UNITS/ML VIAL SQ SCH (09:00)
[2022-04-12] MEDS: METOPROLOL SUCCINATE 25 MG ER TABLET PO SCH (09:00)
[2022-04-12] MEDS: LOSARTAN POTASSIUM 25 MG TABLET PO SCH (09:00)
[2022-04-12] MEDS: ONDANSETRON HCL 4 MG/2 ML VIAL IVP PRN (12:13)
[2022-04-12] MEDS: AMPICILLIN SODIUM/SULBACTAM NA 3 GM in SODIUM CHLORIDE 0.9% 100 ML IV SCH (17:22)
[2022-04-12] MEDS: CALCIUM CARBONATE 500 MG CHEWABLE TABLET CHEW PRN (21:44)
[2022-04-12 22:51] LABS: GLUCOMETER DEV NAME(LOC) 5N.1C; GLUCOSE,POINT OF CARE 109 MG/DL (70-110)
[2022-04-13] MEDS: ACETAMINOPHEN 325 MG TABLET PO PRN (00:32)
[2022-04-13 01:04] VITALS: BP 145/40
[2022-04-13 05:27] VITALS: BP 120/36
[2022-04-13 08:23] VITALS: BP 127/48
[2022-04-13] MEDS: SEVELAMER CARBONATE 800 MG TABLET PO SCH (10:09)
[2022-04-13] MEDS: ASPIRIN 325 MG TABLET PO SCH (10:10)
[2022-04-13] MEDS: DOCUSATE SODIUM 100 MG CAPSULE PO SCH (10:10)
[2022-04-13] MEDS: PANTOPRAZOLE SODIUM 40 MG DR TABLET PO SCH (10:10)
[2022-04-13] MEDS: ATORVASTATIN CALCIUM 40 MG TABLET PO SCH (10:10)
[2022-04-13] MEDS: METOPROLOL SUCCINATE 25 MG ER TABLET PO SCH (10:10)
[2022-04-13] MEDS: CINACALCET HCL 30 MG TABLET PO SCH (10:10)
[2022-04-13] MEDS: LOSARTAN POTASSIUM 25 MG TABLET PO SCH (10:11)
[2022-04-13] MEDS: HEPARIN SODIUM,PORCINE 5,000 UNITS/ML VIAL SQ SCH (10:11)
[2022-04-13 12:10] VITALS: BP 119/43
[2022-04-13] MEDS ORDERED: FOLIC ACID/VIT B COMPLEX AND C TABLET PO SCH (12:45)
[2022-04-13 12:51] LABS: GLUCOMETER DEV NAME(LOC) 5N.1C; GLUCOSE,POINT OF CARE 124 MG/DL (70-110)
[2022-04-13] MEDS: AMPICILLIN SODIUM/SULBACTAM NA 3 GM in SODIUM CHLORIDE 0.9% 100 ML IV SCH (16:43)
[2022-04-13] MEDS: HYDROCODONE/ACETAMINOPHEN 5-325 MG TABLET PO PRN (17:39)
== END 2022-04-13 17:43 | DRG 871 ==
LOC: EMS 13:47 → ICUN 16:58 → ICU 17:30 → 5S 03-31 17:29
PROVIDERS: ADMIT Internal Medicine; ATTEND Internal Medicine
PROC: 0W9B30Z Drainage of Left Pleural Cavity with Drainage Device, Percutaneous Approach (ICD-10-PCS; 2022-03-29)
PROC: 5A1D70Z Performance of Urinary Filtration, Intermittent, Less than 6 Hours Per Day (ICD-10-PCS; 2022-03-29)
PROC: XW033E5 Introduction of Remdesivir Anti-infective into Peripheral Vein, Percutaneous Approach, New Technology Group 5 (ICD-10-PCS; 2022-03-30)
PROC: 5A1D70Z Performance of Urinary Filtration, Intermittent, Less than 6 Hours Per Day (ICD-10-PCS; 2022-03-31)
PROC: 5A1D70Z Performance of Urinary Filtration, Intermittent, Less than 6 Hours Per Day (ICD-10-PCS; 2022-04-02)
PROC: 5A1D70Z Performance of Urinary Filtration, Intermittent, Less than 6 Hours Per Day (ICD-10-PCS; 2022-04-04)
PROC: 5A1D70Z Performance of Urinary Filtration, Intermittent, Less than 6 Hours Per Day (ICD-10-PCS; 2022-04-07)
PROC: 5A1D70Z Performance of Urinary Filtration, Intermittent, Less than 6 Hours Per Day (ICD-10-PCS; 2022-04-09)
PROC: 5A0935A Assistance with Respiratory Ventilation, Less than 24 Consecutive Hours, High Flow/Velocity Cannula (ICD-10-PCS; 2022-04-09)
PROC: 0WPBX0Z Removal of Drainage Device from Left Pleural Cavity, External Approach (ICD-10-PCS; principal; 2022-04-12)
DX: A41.9 Sepsis, unspecified organism (principal); I21.4 Non-ST elevation (NSTEMI) myocardial infarction; N18.6 End stage renal disease; N17.0 Acute kidney failure with tubular necrosis; U07.1 COVID-19; I50.31 Acute diastolic (congestive) heart failure; J96.01 Acute respiratory failure with hypoxia; R65.21 Severe sepsis with septic shock; J86.9 Pyothorax without fistula; J12.82 Pneumonia due to coronavirus disease 2019; K92.2 Gastrointestinal hemorrhage, unspecified; I13.2 Hypertensive heart and chronic kidney disease with heart failure and with stage 5 chronic kidney disease, or end stage renal disease; E44.0 Moderate protein-calorie malnutrition; I25.10 Atherosclerotic heart disease of native coronary artery without angina pectoris; E11.22 Type 2 diabetes mellitus with diabetic chronic kidney disease; E78.5 Hyperlipidemia, unspecified; D63.1 Anemia in chronic kidney disease; E87.5 Hyperkalemia; I48.0 Paroxysmal atrial fibrillation; R00.1 Bradycardia, unspecified; E11.51 Type 2 diabetes mellitus with diabetic peripheral angiopathy without gangrene; E11.319 Type 2 diabetes mellitus with unspecified diabetic retinopathy without macular edema; E11.40 Type 2 diabetes mellitus with diabetic neuropathy, unspecified; I25.2 Old myocardial infarction; Z79.02 Long term (current) use of antithrombotics/antiplatelets; Z99.2 Dependence on renal dialysis; Z95.1 Presence of aortocoronary bypass graft; Z89.511 Acquired absence of right leg below knee; Z79.4 Long term (current) use of insulin; Z79.82 Long term (current) use of aspirin; Z68.27 Body mass index [BMI] 27.0-27.9, adult
CPT/HCPCS: 36245; 36569; 36600; 71045; 71250; 74019; 75989; 76937; 80048; 80053; 80076; 80202; 82805; 82962; 83605; 83735; 83880; 83986; 84100; 84484; 85025; 85610; 86140; 87040; 87075; 87081; 87186; 87205; 87340; 89051; 90935; 93005; 93306; 93971; 97163; 97530; 99285; G0378; J0295; J0461; J0610; J0885; J1100; J1265; J1644; J2250; J2270; J2310; J2405; J2543; J2997; J3010; J3370; J3490; J7030; J7040; J7050; J7060; Q9967; 36415-L1; 36415-TC; 87070